=== PATIENT | male | born 1965 | race Caucasian/White ===

== ENCOUNTER 2023-10-19 14:44 | Inpatient (IN) | payer OTHER ==
[2023-10-19] VITALS (20 sets, daily range): BP systolic 115–139; BP diastolic 45–76; PULSE 75–112; RESP 14–24; TEMP 97.4
[~2023-10-19] VITALS: Ht 172.7 cm; Wt 113.4 kg
[2023-10-19] MEDS ORDERED: MIDAZOLAM 100MG/100ML PMX 100 ML IV PRN (15:00)
[2023-10-19 15:10] LABS: BASOPHILS % 0.3 % (0.0-2.0); EOSINOPHILS % 0.6 % (0.0-5.0); HEMATOCRIT. 41.2 % (42.0-52.0); HEMOGLOBIN. 13.8 g/dL (14.0-18.0); LYMPHOCYTES % 21.6 % (20.0-50.0); MEAN CORPUSCULAR HEMOGLOBIN 30.3 pg (28.0-32.0); MEAN CORPUSCULAR HGB CONC 33.6 g/dL (31.0-37.0); MEAN CORPUSCULAR VOLUME 90.4 fL (80.0-94.0); MEAN PLATELET VOLUME 8.2 fl (7.4-10.4); MONOCYTES % 2.9 % (2.0-8.0); NEUTROPHILS % 74.6 % (40.0-76.0); PLATELET 410 x1000/uL (130-400); RED BLOOD CELL COUNT 4.56 mill/uL (4.7-6.1); RED CELL DISTRIBUTION WIDTH 12.9 % (11.6-14.6); WHITE BLOOD COUNT 19.9 x1000/uL (4.5-11.0)
[2023-10-19 15:19] LABS: CHLORIDE 103 mEq/L (98-107); POTASSIUM 3.2 mEq/L (3.5-5.1); SODIUM 137 mEq/L (136-145)
[2023-10-19 15:20] LABS: CALCIUM 8.6 mg/dL (8.7-10.4); CARBON DIOXIDE 18 mEq/L (21-32)
[2023-10-19 15:25] LABS: CREATININE 1.7 mg/dL (0.6-1.3); UREA NITROGEN BLOOD 14 mg/dL (9-23)
[2023-10-19 15:26] LABS: ETHANOL BLOOD < 10 mg/dL (<10)
[2023-10-19 15:27] LABS: ACETAMINOPHEN < 2 ug/mL (10-30); AMMONIA 31 uMol/L (<32)
[2023-10-19 15:35] LABS: GLUCOSE 401 mg/dL (70-105)
[2023-10-19 15:45] LABS: TROPONIN I HIGH SENSITIVITY 93 ng/L (3.0-53)
[2023-10-19] MEDS: ROCURONIUM BROMIDE 10MG/ML VIAL 5ML IV ONE (15:45)
[2023-10-19] MEDS: ETOMIDATE 2MG/ML 10ML VIAL IV ONE (15:45)
[2023-10-19] MEDS ORDERED: AZITHROMYCIN 500MG/250ML 250 ML IV NR (16:02)
[2023-10-19 16:06] LABS: BG BASE EXCESS -5.7 mmol/L (-2.0-2.0); BG CARBOXYHEMOGLOBIN 0.3 % (0.5-1.5); BG DEOXYHEMOGLOBIN 2.4 % (0.0-5.0); BG FRACTION INSPIRED OXYGEN 100; BG HCO3 ACT 21.1 mmol/L (22.0-26.0); BG METHEMOGLOBIN 0.3 % (0.0-1.5); BG OXYGEN SATURATION 97.6 % (92.0-98.5); BG PCO2 46.2 mmHg (35.0-45.0); BG PH 7.278 (7.350-7.450); BG PO2 108.2 mmHg (75.0-100.0); BG SAMPLE SITE RIGHT RADIAL; BG TOTAL HEMOGLOBIN 15.4 g/dL (12.0-18.0); BG TOTAL RESPIRATORY RATE 26 b/min; BG VENT MODE VENT - AC
[2023-10-19] MEDS: NALOXONE HCL 0.4MG/ML 1ML VIAL IV PRN (16:13)
[2023-10-19] MEDS ORDERED: CEFTRIAXONE 1GM/50ML 50 ML IV NR (16:15)
[2023-10-19 16:51] LABS: CLARITY URINE CLEAR (CLEAR); COLOR URINE YELLOW (YELLOW); GLUCOSE URINE 2+ (NEGATIVE); KETONES URINE NEGATIVE (NEGATIVE); LEUKOCYTE ESTERASE URINE NEGATIVE (NEGATIVE); NITRITE URINE NEGATIVE (NEGATIVE); OCCULT BLOOD URINE TRACE (NEGATIVE); PH URINE 6.5 (4.5-8.0); PROTEIN URINE 1+ (NEGATIVE); SPECIFIC GRAVITY URINE 1.009 (1.005-1.030); UROBILINOGEN URINE 0.2 E.U./dL (0.2-1.0)
[2023-10-19 17:07] LABS: *AMPHETAMINES SCREEN URINE NEGATIVE (NEGATIVE); *BARBITURATES SCREEN URINE NEGATIVE (NEGATIVE); *BENZODIAZEPINES SCREEN URINE NEGATIVE (NEGATIVE); *COCAINE SCREEN URINE PRESUMPTIVE POSITIVE (NEGATIVE); METHADONE URINE SCREEN NEGATIVE (NEGATIVE); OPIATES URINE SCREEN NEGATIVE (NEGATIVE)
[2023-10-19 17:08] LABS: CANNABINOID URINE SCREEN NEGATIVE (NEGATIVE); ECSTASY MDMA SCREEN URINE NEGATIVE (NEGATIVE); PHENCYCLIDINE URINE SCREEN NEGATIVE (NEGATIVE)
[2023-10-19 17:15] LABS: BACTERIA URINE 1+; SQUAMOUS EPITHELIAL CELL URINE NONE SEEN /lpf (RARE/1+); WBC URINE 0-2 /hpf (0-2)
[2023-10-19 17:16] LABS: COARSE GRANULAR CASTS URINE 0-5 /lpf
[2023-10-19] MEDS: NOREPINEPHRINE 8MG/250ML PMX 250 ML IV ONE (17:28)
[2023-10-19] MEDS: NOREPINEPHRINE 8MG/250ML PMX 250 ML IV NR (17:28)
[2023-10-19] MEDS ORDERED: MAGNESIUM/ALUMINUM HYDROXIDE/SIMETHICONE 30ML UDC PO PRN (17:45)
[2023-10-19] MEDS ORDERED: ACETAMINOPHEN 325MG TABLET PO PRN (17:45)
[2023-10-19] MEDS ORDERED: ONDANSETRON HCL 4MG/2ML INJ IV PRN (17:45)
[2023-10-19] MEDS ORDERED: DOCUSATE SODIUM 100MG CAPSULE PO PRN (17:45)
[2023-10-19] MEDS ORDERED: VANCOMYCIN 1.5GM/250ML 250 ML IV NR (18:45)
[2023-10-19 18:53] LABS: CREATINE KINASE 58 IU/L (46-171)
[2023-10-19 18:55] LABS: T4 FREE 0.92 ng/dL (0.89-1.76); THYROID STIMULATING HORMONE 8.85 uIU/mL (0.55-4.78)
[2023-10-19] MEDS ORDERED: DEXTROSE 50% WATER 50ML SYRINGE IV PRN (19:00)
[2023-10-19] MEDS: MIDAZOLAM 100MG/100ML PMX 100 ML IV PRN (19:28)
[2023-10-19] MEDS: KCL 20MEQ/100ML PREMIX 100 ML IV SCH (20:08)
[2023-10-19] MEDS: SODIUM CHLORIDE 0.9% 1,000 ML IV SCH (20:08)
[2023-10-19] MEDS: PIPERACILLIN/TAZO 3.375G/50ML 50 ML IV NR (20:08)
[2023-10-19] MEDS: INSULIN LISPRO 100 UNITS/ML SUBCUT SCH (21:00)
[2023-10-19] MEDS: BLOOD SUGAR DIAGNOSTIC STRIP TEST SCH (21:00)
[2023-10-19] MEDS: ENOXAPARIN 30MG/0.3ML SYR SUBCUT SCH (22:08)
[2023-10-19] MEDS: FENTANYL 2500MCG/250ML PMX 250 ML IV PRN (22:44)
[2023-10-19] MEDS ORDERED: PENI500T MT (23:12)
[2023-10-19] MEDS ORDERED: AMLO10TA80 MT (23:12)
[2023-10-19] MEDS ORDERED: LISI20TA31 MT (23:12)
[2023-10-19] MEDS ORDERED: PROPOFOL 10MG/ML 100ML 100 ML IV PRN (23:15)
[2023-10-19 23:24] LABS: TROPONIN I HIGH SENSITIVITY 1528 ng/L (3.0-53)
[2023-10-20] VITALS (65 sets, daily range): BP systolic 95–148; BP diastolic 63–90; PULSE 74–100; RESP 13–40; TEMP 97.4–101
[2023-10-20] MEDS: ENOXAPARIN 80MG/0.8ML SYR SUBCUT NR (00:47)
[2023-10-20] MEDS: BLOOD SUGAR DIAGNOSTIC STRIP TEST SCH (05:31)
[2023-10-20] MEDS: PIPERACILLIN/TAZO 3.375G/50ML 50 ML IV SCH (05:49)
[2023-10-20 06:12] LABS: BASOPHILS % 0.2 % (0.0-2.0); EOSINOPHILS % 0.4 % (0.0-5.0); HEMATOCRIT. 38.1 % (42.0-52.0); HEMOGLOBIN. 12.8 g/dL (14.0-18.0); LYMPHOCYTES % 18.9 % (20.0-50.0); MEAN CORPUSCULAR HEMOGLOBIN 30.5 pg (28.0-32.0); MEAN CORPUSCULAR HGB CONC 33.7 g/dL (31.0-37.0); MEAN CORPUSCULAR VOLUME 90.7 fL (80.0-94.0); MEAN PLATELET VOLUME 7.7 fl (7.4-10.4); MONOCYTES % 8.1 % (2.0-8.0); NEUTROPHILS % 72.4 % (40.0-76.0); PLATELET 330 x1000/uL (130-400); RED CELL DISTRIBUTION WIDTH 13.4 % (11.6-14.6)
[2023-10-20 06:18] LABS: CARBON DIOXIDE 25 mEq/L (21-32); CHLORIDE 109 mEq/L (98-107); POTASSIUM 4.3 mEq/L (3.5-5.1); SODIUM 140 mEq/L (136-145)
[2023-10-20 06:19] LABS: CALCIUM 8.4 mg/dL (8.7-10.4)
[2023-10-20 06:21] LABS: PROTHROMBIN TIME 11.4 sec (9.6-11.0)
[2023-10-20 06:22] LABS: CREATINE KINASE MB FRACTION 7.6 ng/mL (0.5-3.6)
[2023-10-20 06:23] LABS: TRIGLYCERIDE 230 mg/dL (0-150); UREA NITROGEN BLOOD 14 mg/dL (9-23)
[2023-10-20 06:24] LABS: GLUCOSE 103 mg/dL (70-105)
[2023-10-20 06:25] LABS: ALANINE AMINOTRANSFERASE 30 IU/L (10-49); ASPARTATE AMINOTRANSFERASE 28 IU/L (<34); LDL CHOLESTEROL 129 mg/dL (5-100)
[2023-10-20 06:26] LABS: BILIRUBIN DIRECT 0.2 mg/dL (<=3.0); BILIRUBIN TOTAL 0.8 mg/dL (0.1-1.0); CHOLESTEROL 184 mg/dL (<200); CREATINE KINASE 102 IU/L (46-171); HDL CHOLESTEROL 30 mg/dL (>55); PROTEIN TOTAL 6.3 g/dL (6.0-8.3)
[2023-10-20 06:29] LABS: TROPONIN I HIGH SENSITIVITY 1606 ng/L (3.0-53)
[2023-10-20 06:31] LABS: TROPONIN I HIGH SENSITIVITY 1550 ng/L (3.0-53)
[2023-10-20] MEDS: PANTOPRAZOLE SODIUM 40 MG/VIAL IV SCH (08:19)
[2023-10-20] MEDS: LEVOTHYROXINE SODIUM 25MCG TABLET PO SCH (08:19)
[2023-10-20 08:36] LABS: BG BASE EXCESS -1.8 mmol/L (-2.0-2.0); BG CARBOXYHEMOGLOBIN 0.3 % (0.5-1.5); BG FRACTION INSPIRED OXYGEN 100; BG METHEMOGLOBIN 0.3 % (0.0-1.5); BG OXYHEMOGLOBIN 98.4 % (94.0-97.0); BG PCO2 51.1 mmHg (35.0-45.0); BG PH 7.308 (7.350-7.450); BG PO2 179.4 mmHg (75.0-100.0); BG SAMPLE SITE RIGHT RADIAL; BG TOTAL HEMOGLOBIN 13.6 g/dL (12.0-18.0); BG VENT MODE VENT - AC
[2023-10-20] MEDS: ENOXAPARIN 120MG/0.8ML SYR SUBCUT SCH (09:00)
[2023-10-20] MEDS: VANCOMYCIN 1.5GM/250ML 250 ML IV NR (11:18)
[2023-10-20] MEDS ORDERED: VANCOMYCIN 1G PREMIX 200 ML IV SCH (12:00)
[2023-10-20] MEDS: ACETAMINOPHEN 325MG TABLET PO PRN (22:11)
[2023-10-20] MEDS: ATORVASTATIN CALCIUM 40MG TABLET PO SCH (22:11)
[2023-10-21] VITALS (77 sets, daily range): BP systolic 97–139; BP diastolic 59–99; PULSE 60–90; RESP 12–37; TEMP 97.2–100.9
[2023-10-21] MEDS: VANCOMYCIN 1G PREMIX 200 ML IV SCH (06:04)
[2023-10-21 06:26] LABS: HEMATOCRIT 33.7 % (42.0-52.0); HEMOGLOBIN 11.6 g/dL (14.0-18.0); MEAN CORPUSCULAR HEMOGLOBIN 30.9 pg (28.0-32.0); MEAN CORPUSCULAR HGB CONC 34.6 g/dL (31.0-37.0); MEAN CORPUSCULAR VOLUME 89.4 fL (80.0-94.0); PLATELET 283 x1000/uL (130-400); RED BLOOD CELL COUNT 3.76 mill/uL (4.7-6.1); RED CELL DISTRIBUTION WIDTH 12.9 % (11.6-14.6); WHITE BLOOD COUNT 12.1 x1000/uL (4.5-11.0)
[2023-10-21 06:29] LABS: CHLORIDE 109 mEq/L (98-107); POTASSIUM 3.4 mEq/L (3.5-5.1); SODIUM 140 mEq/L (136-145)
[2023-10-21 06:30] LABS: CALCIUM 8.4 mg/dL (8.7-10.4)
[2023-10-21 06:31] LABS: CARBON DIOXIDE 25 mEq/L (21-32)
[2023-10-21 06:35] LABS: CREATININE 1.1 mg/dL (0.6-1.3)
[2023-10-21 06:36] LABS: GLUCOSE 106 mg/dL (70-105); UREA NITROGEN BLOOD 13 mg/dL (9-23)
[2023-10-21] MEDS: LIDOCAINE HCL 1% 10 MG/ML 10ML VIAL ONE (10:06)
[2023-10-21] MEDS: KCL 20MEQ/100ML PREMIX 100 ML IV NR (10:33)
[2023-10-21 11:32] LABS: BG BASE EXCESS -0.5 mmol/L (-2.0-2.0); BG CARBOXYHEMOGLOBIN 0.3 % (0.5-1.5); BG DEOXYHEMOGLOBIN 2.8 % (0.0-5.0); BG FRACTION INSPIRED OXYGEN 60; BG HCO3 ACT 24.5 mmol/L (22.0-26.0); BG METHEMOGLOBIN 0.2 % (0.0-1.5); BG OXYGEN SATURATION 97.2 % (92.0-98.5); BG OXYHEMOGLOBIN 96.7 % (94.0-97.0); BG PCO2 41.6 mmHg (35.0-45.0); BG PH 7.388 (7.350-7.450); BG PO2 95.7 mmHg (75.0-100.0); BG SAMPLE SITE RIGHT RADIAL; BG TOTAL HEMOGLOBIN 14.5 g/dL (12.0-18.0); BG VENT MODE VENT - AC
[2023-10-22] VITALS (48 sets, daily range): BP systolic 117–164; BP diastolic 56–109; PULSE 68–113; RESP 12–26; TEMP 97.5–99.2
[2023-10-22 06:47] LABS: BASOPHILS % 0.5 % (0.0-2.0); EOSINOPHILS % 2.2 % (0.0-5.0); HEMATOCRIT. 34.3 % (42.0-52.0); HEMOGLOBIN. 11.6 g/dL (14.0-18.0); LYMPHOCYTES % 19.7 % (20.0-50.0); MEAN CORPUSCULAR HEMOGLOBIN 30.3 pg (28.0-32.0); MEAN CORPUSCULAR HGB CONC 33.9 g/dL (31.0-37.0); MEAN CORPUSCULAR VOLUME 89.5 fL (80.0-94.0); MEAN PLATELET VOLUME 7.7 fl (7.4-10.4); MONOCYTES % 9.7 % (2.0-8.0); NEUTROPHILS % 67.9 % (40.0-76.0); PLATELET 272 x1000/uL (130-400); RED BLOOD CELL COUNT 3.83 mill/uL (4.7-6.1); RED CELL DISTRIBUTION WIDTH 12.4 % (11.6-14.6); WHITE BLOOD COUNT 10.3 x1000/uL (4.5-11.0)
[2023-10-22 06:51] LABS: CARBON DIOXIDE 25 mEq/L (21-32); CHLORIDE 108 mEq/L (98-107); POTASSIUM 3.4 mEq/L (3.5-5.1); SODIUM 141 mEq/L (136-145)
[2023-10-22 06:52] LABS: CALCIUM 8.3 mg/dL (8.7-10.4)
[2023-10-22 06:56] LABS: CREATININE 0.8 mg/dL (0.6-1.3)
[2023-10-22 06:57] LABS: GLUCOSE 92 mg/dL (70-105); UREA NITROGEN BLOOD 8 mg/dL (9-23)
[2023-10-22] MEDS ORDERED: HALOPERIDOL LACTATE 5MG/ML VIAL IM PRN (10:00)
[2023-10-22 10:10] LABS: BG BASE EXCESS 1.4 mmol/L (-2.0-2.0); BG CARBOXYHEMOGLOBIN 0.3 % (0.5-1.5); BG DEOXYHEMOGLOBIN 1.7 % (0.0-5.0); BG FRACTION INSPIRED OXYGEN 60; BG HCO3 ACT 25.7 mmol/L (22.0-26.0); BG METHEMOGLOBIN 0.3 % (0.0-1.5); BG OXYGEN SATURATION 98.3 % (92.0-98.5); BG OXYHEMOGLOBIN 97.7 % (94.0-97.0); BG PCO2 39.5 mmHg (35.0-45.0); BG PH 7.431 (7.350-7.450); BG PO2 118.9 mmHg (75.0-100.0); BG SAMPLE SITE RIGHT RADIAL; BG VENT MODE VENT - AC
[2023-10-22] MEDS: POTASSIUM CHLORIDE 20MEQ TABLET SR PO NR (10:17)
[2023-10-22 13:51] LABS: BG BASE EXCESS 1.3 mmol/L (-2.0-2.0); BG CARBOXYHEMOGLOBIN 0.3 % (0.5-1.5); BG DEOXYHEMOGLOBIN 3.2 % (0.0-5.0); BG FRACTION INSPIRED OXYGEN 45; BG HCO3 ACT 25.1 mmol/L (22.0-26.0); BG METHEMOGLOBIN 0.2 % (0.0-1.5); BG OXYGEN SATURATION 96.8 % (92.0-98.5); BG OXYHEMOGLOBIN 96.3 % (94.0-97.0); BG PCO2 36.8 mmHg (35.0-45.0); BG PH 7.451 (7.350-7.450); BG PO2 84.7 mmHg (75.0-100.0); BG SAMPLE SITE RIGHT RADIAL; BG TOTAL HEMOGLOBIN 13.2 g/dL (12.0-18.0); BG VENT MODE VENT - AC
[2023-10-22] MEDS ORDERED: RACEPINEPHRINE 2.25% 0.5ML NEB VIAL HHN PRN (16:15)
[2023-10-22] MEDS: ENOXAPARIN 30MG/0.3ML SYR SUBCUT SCH (21:24)
[2023-10-23] VITALS (18 sets, daily range): BP systolic 115–161; BP diastolic 71–99; PULSE 65–102; RESP 11–28; TEMP 97.5–98.1
[2023-10-23] MEDS: CLONIDINE 0.1MG TABLET PO PRN (05:15)
[2023-10-23 06:52] LABS: BASOPHILS % 0.9 % (0.0-2.0); EOSINOPHILS % 2.3 % (0.0-5.0); HEMATOCRIT. 40.5 % (42.0-52.0); HEMOGLOBIN. 13.8 g/dL (14.0-18.0); LYMPHOCYTES % 18.6 % (20.0-50.0); MEAN CORPUSCULAR HEMOGLOBIN 30.6 pg (28.0-32.0); MEAN CORPUSCULAR HGB CONC 34.2 g/dL (31.0-37.0); MEAN CORPUSCULAR VOLUME 89.5 fL (80.0-94.0); MEAN PLATELET VOLUME 8.1 fl (7.4-10.4); MONOCYTES % 9.6 % (2.0-8.0); NEUTROPHILS % 68.6 % (40.0-76.0); PLATELET 296 x1000/uL (130-400); RED BLOOD CELL COUNT 4.52 mill/uL (4.7-6.1); RED CELL DISTRIBUTION WIDTH 12.7 % (11.6-14.6); WHITE BLOOD COUNT 8.7 x1000/uL (4.5-11.0)
[2023-10-23 07:00] LABS: CARBON DIOXIDE 28 mEq/L (21-32); CHLORIDE 108 mEq/L (98-107); POTASSIUM 3.8 mEq/L (3.5-5.1); SODIUM 143 mEq/L (136-145)
[2023-10-23 07:01] LABS: CALCIUM 9.2 mg/dL (8.7-10.4)
[2023-10-23 07:05] LABS: CREATININE 0.9 mg/dL (0.6-1.3); GLUCOSE 113 mg/dL (70-105)
[2023-10-23 07:37] LABS: UREA NITROGEN BLOOD < 5 mg/dL (9-23)
[2023-10-23] MEDS: AMLODIPINE 10MG TABLET PO SCH (13:10)
[2023-10-23] MEDS: LISINOPRIL 40MG TABLET PO SCH (16:49)
[2023-10-23] MEDS: GUAIFENESIN 200MG/10ML SUGAR FREE UDC PO PRN (16:49)
[2023-10-24] VITALS: BP 154/82; PULSE 61; RESP 18; TEMP 97.7
[2023-10-24 00:43] VITALS: PULSE 64; RESP 16
[2023-10-24] MEDS: IPRATROPIUM/ALBUTEROL 0.5-3(2.5)MG/3ML NEB HHN PRN (00:43)
[2023-10-24 07:00] LABS: HEMATOCRIT 35.6 % (42.0-52.0); HEMOGLOBIN 12.4 g/dL (14.0-18.0); MEAN CORPUSCULAR HEMOGLOBIN 30.5 pg (28.0-32.0); MEAN CORPUSCULAR HGB CONC 34.8 g/dL (31.0-37.0); MEAN CORPUSCULAR VOLUME 87.5 fL (80.0-94.0); PLATELET 323 x1000/uL (130-400); RED BLOOD CELL COUNT 4.07 mill/uL (4.7-6.1); RED CELL DISTRIBUTION WIDTH 12.9 % (11.6-14.6); WHITE BLOOD COUNT 11.1 x1000/uL (4.5-11.0)
[2023-10-24 07:14] LABS: CHLORIDE 108 mEq/L (98-107); POTASSIUM 3.3 mEq/L (3.5-5.1); SODIUM 142 mEq/L (136-145)
[2023-10-24 07:15] LABS: CALCIUM 8.9 mg/dL (8.7-10.4)
[2023-10-24 07:20] LABS: CREATININE 0.8 mg/dL (0.6-1.3); GLUCOSE 111 mg/dL (70-105)
[2023-10-24 07:21] LABS: UREA NITROGEN BLOOD 8 mg/dL (9-23)
[2023-10-24 07:27] LABS: CARBON DIOXIDE 24 mEq/L (21-32)
[2023-10-24 08:00] VITALS: BP 128/72; PULSE 77; RESP 18; TEMP 97.7
[2023-10-24] MEDS: FAMOTIDINE 20MG/2ML VIAL IV SCH (08:41)
[2023-10-24] MEDS: POTASSIUM CHLORIDE 20MEQ TABLET SR PO NR (08:41)
[2023-10-24 09:58] VITALS: BP 128/72; PULSE 77; TEMP 97.7; O2SAT 99
== END 2023-10-24 10:35 | disposition home or self-care (01) | DRG 720 ==
LOC: ER 14:44 → EDBD 14:44 → CVICU 16:07 → EDBEDREQ 16:10 → EDBEDREQTM 16:10 → 8WST 10-23 10:44
PROVIDERS: ADMIT Internal Medicine; ATTEND Internal Medicine
PROC: 06HY33Z Insertion of Infusion Device into Lower Vein, Percutaneous Approach (ICD-10-PCS; principal; 2023-10-19)
PROC: 5A1945Z Respiratory Ventilation, 24-96 Consecutive Hours (ICD-10-PCS; 2023-10-19)
PROC: 0BH17EZ Insertion of Endotracheal Airway into Trachea, Via Natural or Artificial Opening (ICD-10-PCS; 2023-10-19)
PROC: B54BZZA Ultrasonography of Right Lower Extremity Veins, Guidance (ICD-10-PCS; 2023-10-19)
PROC: 05H633Z Insertion of Infusion Device into Left Subclavian Vein, Percutaneous Approach (ICD-10-PCS; 2023-10-21)
PROC: B547ZZA Ultrasonography of Left Subclavian Vein, Guidance (ICD-10-PCS; 2023-10-21)
DX: A41.9 Sepsis, unspecified organism (principal); J96.01 Acute respiratory failure with hypoxia; J69.0 Pneumonitis due to inhalation of food and vomit; G92.8 Other toxic encephalopathy; I21.A1 Myocardial infarction type 2; N17.9 Acute kidney failure, unspecified; E87.4 Mixed disorder of acid-base balance; E11.65 Type 2 diabetes mellitus with hyperglycemia; D64.9 Anemia, unspecified; T40.5X1A Poisoning by cocaine, accidental (unintentional), initial encounter; Y92.89 Other specified places as the place of occurrence of the external cause; E78.5 Hyperlipidemia, unspecified; E87.6 Hypokalemia; I10 Essential (primary) hypertension; E66.9 Obesity, unspecified; Z68.38 Body mass index [BMI] 38.0-38.9, adult; E03.9 Hypothyroidism, unspecified; D72.823 Leukemoid reaction; I45.10 Unspecified right bundle-branch block; Z79.4 Long term (current) use of insulin; Z79.899 Other long term (current) drug therapy
CPT/HCPCS: 31500; 36415; 36573; 36600; 71045; 80048; 80061; 80076; 80202; 80305; 80307; 80320; 80329; 81003; 82010; 82140; 82375; 82550; 82553; 82805; 82962; 83036; 83605; 83735; 83880; 84439; 84443; 84484; 85025; 85027; 87070; 93005; 93306; 93970; 94002; 94003; 94640; 99291; C1725; C9113; J1650; J1815; J2250; J2543; J3010; J3370; J3480; J3490; A4315; G0480